=== PATIENT | female | born 1985 | race Caucasian/White ===

== ENCOUNTER 2020-02-19 09:45 | Outpatient (CLI) | payer SELFPAY | END 2020-02-19 20:00 | disposition home or self-care (01) | LOC: SLB 09:45 | PROVIDERS: ATTEND Obstetrics & Gynecology | DX: Z11.59 Encounter for screening for other viral diseases (principal) | CPT/HCPCS: C9803; U0003 ==

== ENCOUNTER 2020-02-21 00:10 | Inpatient (IN) | payer MEDICAID, SELFPAY ==
[~2020-02-21] VITALS: Ht 167.6 cm; Wt 108.4 kg
[2020-02-21] MEDS ORDERED: OXYTOCIN/0.9 % SODIUM CHLORIDE 1,000 ML IV SCH (01:11)
[2020-02-21] MEDS ORDERED: MORPHINE 4 MG/ML INJ. SYRINGE IVP PRN (01:15)
[2020-02-21] MEDS ORDERED: TERBUTALINE SULFATE 1 MG/ML VIAL SUBCUT ONE (01:15)
[2020-02-21 01:51] LABS: BASOPHILS % (AUTO) 0.4 % (0.0-2.0); EOSINOPHILS % (AUTO) 0.6 % (0.0-4.0); HEMATOCRIT 34.3 % (36-48); HEMOGLOBIN 11.8 g/dL (12.0-16.0); LYMPHOCYTES # (AUTO) 1.6 K/uL (1.0-5.5); LYMPHOCYTES % (AUTO) 19.4 % (20.5-51.5); MEAN CORPUSCULAR HEMOGLOBIN 33 pg (27-31); MEAN CORPUSCULAR HGB CONC 35 % (32-36); MEAN CORPUSCULAR VOLUME 96 fL (79.0-98.0); MONOCYTES # (AUTO) 0.6 K/uL (0.0-1.0); MONOCYTES % (AUTO) 7.1 % (1.7-9.3); NEUTROPHILS # (AUTO) 5.8 K/uL (1.8-7.7); NEUTROPHILS % (AUTO) 72.5 % (40.0-70.0); PLATELET COUNT (AUTO) 188 K/uL (130-430); RED BLOOD CELL COUNT(AUTO) 3.59 MIL/uL (4.2-6.2); RED CELL DISTRIBUTION WIDTH 13.4 % (9.0-15.0); WHITE BLOOD COUNT (AUTO) 8.1 K/uL (4.8-10.8)
[2020-02-21] MEDS ORDERED: LR 500 ML IV ONE (03:20)
[2020-02-21] MEDS ORDERED: ROPIVACAINE HCL/PF 0.2% 200 ML ONE ×2 (03:28→15:59)
[2020-02-21] MEDS ORDERED: fentaNYL CITRATE/PF 100 MCG/2 ML AMP ONE ×2 (03:28→15:58)
[2020-02-21] MEDS ORDERED: FENT2mCg/mL-ROPIVA0.2%/NS EPID 200 ML EP SCH (03:30)
[2020-02-21] MEDS: LR 1,000 ML IV SCH ×3 (03:54→03:56)
[2020-02-21] MEDS ORDERED: HYDROcodone/ACETAMIN 5-325 MG TAB (NORCO/ VICODIN) PO PRN (18:00)
[2020-02-21] MEDS: OXYCODONE/ACETAMINOPHEN 5-325 TABLET PO PRN (23:43)
[2020-02-22 07:38] LABS: HEMATOCRIT 36.5 % (36-48); HEMOGLOBIN 12.1 g/dL (12.0-16.0)
[2020-02-22] MEDS ORDERED: DOCUSATE SODIUM 100 MG CAPSULE PO PRN (11:30)
[2020-02-22] MEDS: IBUPROFEN 600 MG TABLET PO SCH ×2 (11:31→18:18)
[2020-02-22] MEDS: OXYCODONE/ACETAMINOPHEN 5-325 TABLET PO PRN (11:32)
[2020-02-22] MEDS ORDERED: DOCUSATE SODIUM 100 MG CAPSULE PO ONE (11:47)
[2020-02-23] MEDS: IBUPROFEN 600 MG TABLET PO SCH ×3 (06:00→11:35)
[2020-02-23] MEDS: OXYCODONE/ACETAMINOPHEN 5-325 TABLET PO PRN ×2 (08:13→11:35)
== END 2020-02-23 13:25 | disposition home or self-care (01) | DRG 560 ==
LOC: SPU 00:10
PROVIDERS: ADMIT Obstetrics & Gynecology; ATTEND Obstetrics & Gynecology
PROC: 3E0R3BZ Introduction of Anesthetic Agent into Spinal Canal, Percutaneous Approach (ICD-10-PCS; principal; 2020-02-21)
PROC: 10E0XZZ Delivery of Products of Conception, External Approach (ICD-10-PCS; 2020-02-21)
PROC: 00HU33Z Insertion of Infusion Device into Spinal Canal, Percutaneous Approach (ICD-10-PCS; 2020-02-21)
PROC: 3E033VJ Introduction of Other Hormone into Peripheral Vein, Percutaneous Approach (ICD-10-PCS; 2020-02-21)
DX: O80 Encounter for full-term uncomplicated delivery (principal); Z37.0 Single live birth; Z3A.40 40 weeks gestation of pregnancy
CPT/HCPCS: 36415; 81002-TC; 85018-TC; 85025; 86592; 86886; 86900; 86901; 94760; J2590; J3010; J7120